=== PATIENT | male | born 1985 | race Caucasian/White ===

== ENCOUNTER → 2017-12-15 | Emergency (ER) | payer OTHER ==
[~2017-12-15] VITALS: Ht 175.3 cm; Wt 72.6 kg
[~2017-12-15] MED LIST: LEVAQUIN750 MG PO
== END | disposition home or self-care (01) ==
LOC: ER 09:03
DX: S61.412A Laceration without foreign body of left hand, initial encounter (principal); W45.8XXA Other foreign body or object entering through skin, initial encounter; Y93.89 Activity, other specified; Y92.89 Other specified places as the place of occurrence of the external cause; Y99.8 Other external cause status

== ENCOUNTER 2020-03-27 11:23 | Outpatient (CLI) | payer OTHER | END 2020-03-27 11:30 | disposition home or self-care (01) | LOC: LAB 11:23 | DX: N30.00 Acute cystitis without hematuria (principal) ==

== ENCOUNTER 2020-03-27 11:53 | Outpatient (CLI) | payer OTHER | END 2020-03-27 12:02 | disposition home or self-care (01) | LOC: SONOGRAMA 11:53 | DX: N20.0 Calculus of kidney (principal); N30.00 Acute cystitis without hematuria; N40.1 Benign prostatic hyperplasia with lower urinary tract symptoms ==

== ENCOUNTER 2021-03-01 04:48 | Emergency (ER) | payer OTHER ==
[~2021-03-01] VITALS: Ht 172.7 cm; Wt 77.1 kg
[2021-03-01] MEDS ORDERED: AZITHROMYCIN500 MG PO (07:02)
[2021-03-01] MEDS ORDERED: MELATONIN10 M2 PO (07:02)
[2021-03-01] MEDS ORDERED: VITAMIN D3-ALO1 EACH PO (07:02)
[2021-03-01] MEDS ORDERED: COLCHICINE0.6 MG PO (07:02)
[2021-03-01] MEDS ORDERED: ACETAMINOPHEN650 M2 PO (07:02)
[2021-03-01] MEDS ORDERED: IVERMECTIN3 MG PO (07:02)
[2021-03-01] MEDS ORDERED: VITAMIN C WIT1000 MG PO (07:02)
[2021-03-01] MEDS ORDERED: ZINC SULFATE220 M2 PO (08:14)
== END 2021-03-01 08:21 | disposition home or self-care (01) ==
LOC: ER 04:48
DX: B34.9 Viral infection, unspecified (principal); J06.9 Acute upper respiratory infection, unspecified; Z20.822 Contact with and (suspected) exposure to COVID-19

== ENCOUNTER 2021-03-21 07:08 | Outpatient (CLI) | payer OTHER ==
[~2021-03-21 07:08] MED LIST changes: +ACETAMINOPHEN650 M2 PO; +AZITHROMYCIN500 MG PO; +COLCHICINE0.6 MG PO; +IVERMECTIN3 MG PO; +MELATONIN10 M2 PO; +VITAMIN C WIT1000 MG PO; +VITAMIN D3-ALO1 EACH PO; +ZINC SULFATE220 M2 PO
== END 2021-03-21 07:09 | disposition home or self-care (01) ==
LOC: PPH VACUNA 07:08
DX: Z23 Encounter for immunization (principal)